=== PATIENT | male | born 1955 | race Two or more races ===

== ENCOUNTER 2024-10-18 06:00 | Day surgery (SDC) | payer OTHER ==
[2024-10-13 11:34] VITALS: BP 140/81
[~2024-10-18] VITALS: Ht 167.6 cm; Wt 74.8 kg
[~2024-10-18 06:00] MED LIST: ARICEPT10 MG PO; COZAAR50 MG PO; NAMENDA XR7 MG; SIMVASTATIN10 MG PO
[2024-10-18] MEDS ORDERED: SUGAMMADEX SODIUM 200 MG/2 ML VIAL IV ONE (18:45)
[2024-10-18 23:38] VITALS: BP 144/95; O2SAT 100
== END 2024-10-18 21:15 | disposition home or self-care (01) ==
LOC: CIR.AMB 06:00 → AMB-ENDOS 10:15 → CIR.AMB 10:15 → EDBD 10:15 → CIR.AMB 21:15
PROVIDERS: ATTEND Internal Medicine
DX: R93.2 Abnormal findings on diagnostic imaging of liver and biliary tract (principal); R74.8 Abnormal levels of other serum enzymes